=== PATIENT | female | born 1990 | race Caucasian/White ===

== ENCOUNTER → 2018-07-07 | Outpatient (REF) | payer SELFPAY ==
[~2018-07-07] MED LIST: ACET-1718 PO; ACET-3017 PO; CETI-176 PO; CYCL10TA29 PO; DOCU-416 PO; IBUP-2704 PO; IBUP800T37 PO; ONDA4TAB PO; PREN-127 PO; ZOLP-1 PO
[2018-07-07 13:03] LABS: PLATELET COUNT, AUTOMATED 207 K/uL (150-450)
== END ==
LOC: ZZSTITCHES 12:50
PROVIDERS: ATTEND Physician Assistant
DX: R10.11 Right upper quadrant pain (principal); R11.0 Nausea; M25.511 Pain in right shoulder
CPT/HCPCS: 82040; 82247; 82310; 82374; 82435; 82565; 82947; 83690; 84075; 84132; 84155; 84295; 84450; 84460; 84520; 85025

== ENCOUNTER 2018-07-08 22:55 | Inpatient (IN) | payer SELFPAY ==
[~2018-07-08] VITALS: Ht 177.8 cm; Wt 113.9 kg
[~2018-07-08 22:55] MED LIST changes: -CYCL10TA29 PO; -ONDA4TAB PO
--- NOTE | 2018-07-08 23:00 | ER Report ---
History and Physical Time Seen By MD: 23:00 HPI/ROS CHIEF COMPLAINT: Right upper quadrant abdominal pain HISTORY OF PRESENT ILLNESS: 28-year-old female presents ambulatory to the ER complaining of severe right upper quadrant abdominal pain after eating tonight. She notes onset one week ago. Her symptoms of beginning progressively worse. Tonight they're unbearable. She notes 10 out of 10 right upper quadrant pain radiating to her back. She notes is difficult to take a deep breath. Nausea and vomiting. She denies fever or chills. Patient denies dysuria or hematuria. Patient's been seeing a chiropractor because she thought had a rib out. The treatments have not improved her symptoms. REVIEW OF SYSTEMS: Respiratory: No cough, no dyspnea. Cardiovascular: No chest pain, no palpitations. Gastrointestinal: As above Musculoskeletal: No back pain. Allergies: Coded Allergies: Influenza Virus Vacc,Specific (Verified Allergy, Unknown, 07/06/13) Home Meds Active Scripts Ibuprofen (IBUPROFEN) 800 Mg Tablet, 800 MG PO Q8H PRN for PAIN, #30 TAB 0 Refills Prov:CHEYANNE MANRIQUE MD 03/19/17 Reported Medications Ondansetron (ZOFRAN ODT) 4 Mg Tab.rapdis, 4 MG PO Q8H PRN for NAUSEA, TAB.ANGEL 07/08/18 Cyclobenzaprine Hcl (CYCLOBENZAPRINE HCL) 10 Mg Tablet, 10 MG PO TID PRN for PAIN, #9 TAB 07/08/18 Discontinued Reported Medications Cetirizine Hcl (ZYRTEC) 10 Mg Tablet, 10 MG PO QDAY, TAB 03/17/17 Docusate Sodium (COLACE) 100 Mg Capsule, 100 MG PO PRN, CAPSULE 03/17/17 Vits W-Ca,Fe,Fa(<1MG) ( VITAMINS) 1 Each Tablet, 1 EACH PO DAILY, TAB 03/17/17 Discontinued Scripts Acetaminophen With Codeine # 3 (ACETAMINOPHEN-COD #3 TABLET) 1 Each Tablet, 1-2 EACH PO Q4H PRN for PAIN, #14 TAB 0 Refills Prov:CHEYANNE MANRIQUE MD 03/19/17 Reviewed Nurses Notes: Yes Old Medical Records Reviewed: Yes Hx Smoking: Yes (Quit before ) Smoking Status: Former Smoker Exposure to Second Hand Smoke?: No Constitutional Vital Sign - Last 24 Hours 07/08/18 07/08/18 07/08/18 07/08/18 23:02 23:10 23:25 23:40 Temp 97.9 Pulse 102 106 111 89 Resp 20 B/P (MAP) 123/80 Pulse Ox 93 92 93 94 O2 Delivery Room Air 07/08/18 07/09/18 07/09/18 07/09/18 23:55 00:00 00:27 00:30 Pulse 89 B/P (MAP) 104/52 (69) 112/79 (90) 114/69 (84) Pulse Ox 90 07/09/18 07/09/18 07/09/18 07/09/18 00:40 00:55 01:00 01:15 Pulse 91 85 88 87 B/P (MAP) ???/??? (1665) Pulse Ox 90 90 89 07/09/18 07/09/18 07/09/18 07/09/18 01:30 01:45 02:00 02:05 Pulse 77 76 82 79 B/P (MAP) 103/64 (77) 112/61 (78) Pulse Ox 96 93 96 98 07/09/18 07/09/18 07/09/18 07/09/18 02:20 02:30 02:35 02:50 Pulse 79 76 69 B/P (MAP) 99/69 (79) Pulse Ox 94 93 92 07/09/18 07/09/18 07/09/18 07/09/18 03:00 03:05 03:20 03:25 Pulse 72 71 78 B/P (MAP) 93/56 (68) Pulse Ox 90 93 92 Physical Exam General Appearance: The patient is alert, has no immediate need for airway protection and no current signs of toxicity.. Moderate distress, vital signs stable, afebrile HEENT: Pupils equal and round no injection. Oropharynx without redness or exudate, mucous. Membranes are moist Respiratory: Chest is non tender, lungs are clear to auscultation. Cardiac: regular rate and rhythm Gastrointestinal: Abdomen is, soft, very tender right upper quadrant, positive rebound guarding and Leon sign., no masses, bowel sounds normal. Musculoskeletal: Neck: Neck is supple and non tender. No lymphadenopathy Extremities have full range of motion and are non tender. No edema, no calf tenderness Skin: No rashes or lesions. DIFFERENTIAL DIAGNOSIS: After history and physical exam differential diagnosis was considered for abdominal pain including but not limited to appendicitis, cholecystitis, gastritis and urinary tract infection. Additionally,chest pain including but not limited to myocardial ischemia, pericarditis pulmonary embolu s, chest wall pain, pleural inflammation and pulmonary infectious causes. Medical Decision Making Data Points Result Diagram: 07/10/18 0515 07/11/18 0438 Laboratory Hematology Test 07/08/18 23:25 D-Dimer Quantitative (PE/DVT) 3.32 ug/ml (0-0.50) Amylase Level < 30 U/L (0-110) Human Chorionic Gonadotropin, Qual Negative (NEGATIVE) Chemistry Test 07/08/18 23:25 D-Dimer Quantitative (PE/DVT) 3.32 ug/ml (0-0.50) Amylase Level < 30 U/L (0-110) Human Chorionic Gonadotropin, Qual Negative (NEGATIVE) Coagulation Test 07/08/18 23:25 D-Dimer Quantitative (PE/DVT) 3.32 ug/ml EKG/Imaging Imaging Results: CT scan of the CTA pulmonary angiogram was obtained. The results of the study are CTA CHEST WW/O CNTR (PULM ANG) HISTORY: Severe right lower chest pain and right upper quadrant pain. Positive d-dimer. COMPARISON: None. CT abdomen and pelvis was performed concurrently. TECHNIQUE: Pulmonary embolus protocol - Thin-slice axial imaging of the chest was performed during maximal pulmonary arterial opacification with intravenous nonionic iodinated contrast. 3D coronal slab MIPs and 2D reconstructions in the coronal and sagittal planes were performed to aid in pulmonary embolus detection. Machine Wood Sander images have been stored on PACS. One of the following dose optimization techniques was utilized in the performance of this exam: Automated exposure control; adjustment of the mA and/or kV according to the patient's size; or use of an iterative reconstruction technique. Specific details can be referenced in the facility's radiology CT exam operational policy. CONTRAST: 75 mL of IV Isovue-370. FINDINGS: Pulmonary arteries: There is adequate opacification of the pulmonary arteries to the segmental branches. There are no filling defects in the visible pulmonary arteries. Pulmonary arteries are normal in caliber. Thoracic inlet: Normal. Aorta: No aneurysm or dissection. There is no atherosclerosis of the aorta. Heart / Pericardium: The heart is normal. There is no ventricular septal deviation. There is no pericardial effusion. There is no coronary artery calcification. Mediastinum / Zenia: Residual thymic tissue. No lymphadenopathy. Lungs / Pleura: No pleural effusion. The lungs are clear. There is a 2 mm left lower lobe pulmonary nodule (coronal image 47 series 12). There is a calcified granuloma in the right lower lobe (image 59 series 8). No pneumothorax. The airw ays are normal. Upper abdomen: Please see the CT abdomen and pelvis report that is dictated separately. Musculoskeletal/vertebra/body wall: There is mild degenerative change of the spine. No listhesis. No acute fracture. IMPRESSION: 1. No pulmonary embolism. 2. 2 mm left lower lobe pulmonary nodule. Current Fleischner Society recommendations for incidental pulmonary nodules <6mm in size (average of long and short axis): - In a patient with low risk for malignancy (i.e., minimal or absent smoking history, no known malignancy or other risk factors): No routine follow-up. - In a patient at high risk for malignancy (e.g., smoking history and/or other known risk factors): Optional noncontrast CT at 12 months. If unchanged no further follow-up necessary. Nodules less than 6 mm do not require routine follow-up, but certain patients at high risk with suspicious nodule morphology, upper lobe location, or both may warrant 12 month follow-up. Linda H, Nasusan D, Goo J, et al. Guidelines for management of small pulmonary nodules detected on CT images: from the Fleischner society 2017. The study was read by the radiologist. I viewed the images myself on the PACS system. Results: CT scan of the abdomen and pelvis with IV contrast was obtained. The results of the study are ABDOMEN/PELVIS WITH CONTRAST HISTORY: Right lower chest and right upper quadrant abdominal pain. COMPARISON: None. CT pulmonary angiogram was performed concurrently. TECHNIQUE: Axial images were obtained from the lung bases through the symphysis pubis with intravenous contrast. Sagittal and coronal reformats were performed. One of the following dose optimization techniques was utilized in the performance of this exam: Automated exposure control; adjustment of the mA a nd/or kV according to the patient's size; or use of an iterative reconstruction technique. Specific details can be referenced in the facility's radiology CT exam operational policy. CONTRAST: 75 mL IV Isovue-370. FINDINGS: Lower chest: Please see the CT pulmonary angiogram report that is dictated separately. Liver: Normal. Gallbladder/biliary: There are several noncalcified stones within the gallbladder. There is stranding in the fat adjacent to the gallbladder, and there is eccentric gallbladder wall thickening (coronal image 36). No intrahepatic or extrahepatic ductal dilation. Pancreas: Normal. Spleen: Normal. Adrenals: Normal. Kidneys/ureters/bladder: Normal. There is contrast within the renal collecting systems and ureters. GI/mesentery/peritoneal cavity: There is no bowel obstruction. There is no wall thickening or pericolonic stranding. The appendix is normal. There is no free air. Vessels: No aneurysm or significant atherosclerotic disease. No dissection. Nodes: Normal. Pelvis: Uterus and ovaries are normal. Bones/vertebra/soft tissues: There is a small fat-containing umbilical hernia. There is mild degenerative change of the spine. There is straightening of the normal lumbar lordosis. No listhesis. IMPRESSION: 1. Cholelithiasis, and CT findings consistent with cholecystitis. The study was read by the radiologist. I viewed the images myself on the PACS system. Results: Ultrasound of the right upper quadrant gallbladder ultrasound was obtained. The results of the study are GALLBLADDER HISTORY: Acute cholecystitis on CT. COMPARISON: CT abdomen and pelvis earlier same day. FINDINGS: Pancreas: The body and tail the pancreas are not visualized due to bowel gas artifact. Upper abdominal aorta and IVC: Aorta and IVC are patent by color Doppler and are unremarkable. Mid aorta is 2.3 cm in cross-section. Liver: Difficult to penetrate. No discrete lesion. The portal vein is patent with normal hepatopetal flow. Hepatic vein is patent. Gallbladder: There are numerous stones within the gallbladder, as well as gallbladder sludge. There is eccentric thickening of the gallbladder wall. It measures 8 mm in greatest thickness. Gallbladder is prominent in size, measuring 9.6 x 5.4 x 4.9. No pericholecystic fluid. Positive sonographic Leon sign. Common duct: At the upper limits of normal, measuring 6 mm. Right kidney: Normal in size and echogenicity. It measures 10.0 x 4.5 x 6.0 cm. No hydronephrosis. Ascites: None. IMPRESSION: 1. Cholelithiasis with gallbladder wall thickening and pericholecystic fluid, compatible with cholecystitis. 2. Liver is difficult to penetrate. 3. The body and tail of the pancreas are obscured. The study was read by the radiologist. I viewed the images myself on the PACS system. ED Course/Re-evaluation Clinical Indication for ER IV: Hydration, IV Access ED Course Patient was minute to an examination room. H&P was done. The differential diagnosis was considered. Patient on clinical examination is severe right upper quadrant tenderness with Leon sign. She's been having symptoms for 1 week, but became much worse tonight after eating.. Diagnostic evaluation is undertaken. Patient's d-dimer is grossly elevated. A CTA pulmonary angiogram is performed. Patient has normal white blood cell count and LFTs as well as lipase and amylase. A CT scan of the abdomen and pelvis is ordered. It shows acute cholecystitis. Case was discussed with Dr. Mann the on-call general surgeon, who advises admit. She would like a ultrasound done to verify findings. Patient was medicated with IV fluids and required significant pain medicine to get her symptoms under control. 07/09/2018 1:27:42 am case was discussed with Dr. Kylah Mann, general surgery on- call. She except the patient for admission for potential surgery later today. She requests an ultrasound performed as well. Decision to Disposition Date: Jul 09, 2018 Decision to Disposition Time: 01:18 Depart Departure Latest Vital Signs Vital Signs Date Time Temp Pulse Resp B/P (MAP) Pulse Ox O2 Delivery O2 Flow Rate FiO2 07/09/18 03:25 78 92 07/09/18 03:00 93/56 (68) 07/08/18 23:02 97.9 20 Room Air Impression: Primary Impression: Acute cholecystitis Condition: Improved Disposition: HOME OR SELF-CARE SKIP ISAACS DO Jul 08, 2018 23:00
[2018-07-08] MEDS ORDERED: CYCL10TA29 PO (23:07)
[2018-07-08] MEDS ORDERED: ONDA4TAB PO (23:07)
[2018-07-08] MEDS ORDERED: NS(*) 0.9% 1000 ML BAG 1,000 ML IV ONE (23:11)
[2018-07-08] MEDS ORDERED: ONDANSETRON 4 MG/2 ML VIAL IVP ONE (23:15)
[2018-07-08] MEDS ORDERED: fentaNYL CITR 100 MCG/2 ML AMP IVP ONE (23:15)
[2018-07-08 23:32] LABS: PLATELET COUNT, AUTOMATED 183 K/uL (150-450)
[2018-07-09] VITALS (8 sets, daily range): BP systolic 82–118; BP diastolic 49–80; Ht 177.8 cm; Wt 113.9 kg
[2018-07-09] MEDS ORDERED: NS(*) 0.9% 50 ML BAG 50 ML ONE
[2018-07-09] MEDS ORDERED: IOPAMIDOL 76% 75 ML INFUS BTL 75 ML ONE
[2018-07-09] MEDS ORDERED: MORPHINE 4 MG/ML SDV IVP ONE (00:35)
[2018-07-09] MEDS ORDERED: PROMETHAZINE 25 MG/ML 1 ML AMP IVP ONE (00:55)
--- NOTE | 2018-07-09 01:04 | RADIOLOGY IMAGING REPORT ---
[place] [facility] [place]: Marta Bañuelos : 1990 MR: [id number] V: [id number] EXAM DATE: ORDERING PHYSICIAN: SKIP ISAACS TECHNOLOGIST: Location: [facility] [place] Patient: Marta Bañuelos : 1990 Visit/Account:[id number] Date of Sevice: 07/08/2018 CTA CHEST WW/O CNTR (PULM ANG) HISTORY: Severe right lower chest pain and right upper quadrant pain. Positive d-dimer. COMPARISON: None. CT abdomen and pelvis was performed concurrently. TECHNIQUE: Pulmonary embolus protocol - Thin-slice axial imaging of the chest was performed during ma ximal pulmonary arterial opacification with intravenous nonionic iodinated contrast. 3D coronal slab MIPs and 2D reconstructions in the coronal and sagittal planes were performed to aid in pulmonary emb olus detection. Consumer Marketing Manager images have been stored on PACS. One of the following dose optimization techniques was utilized in the performance of this exam: Autom ated exposure control; adjustment of the mA and/or kV according to the patient's size; or use of an i terative reconstruction technique. Specific details can be referenced in the facility's radiology CT exam operational policy. CONTRAST: 75 mL of IV Isovue-370. FINDINGS: Pulmonary arteries: There is adequate opacification of the pulmonary arteries to the segmental branch es. There are no filling defects in the visible pulmonary arteries. Pulmonary arteries are normal in caliber. Thoracic inlet: Normal. Aorta: No aneurysm or dissection. There is no atherosclerosis of the aorta. Heart / Pericardium: The heart is normal. There is no ventricular septal deviation. There is no peric ardial effusion. There is no coronary artery calcification. Mediastinum / Zenia: Residual thymic tissue. No lymphadenopathy. Lungs / Pleura: No pleural effusion. The lungs are clear. There is a 2 mm left lower lobe pulmonary n odule (coronal image 47 series 12). There is a calcified granuloma in the right lower lobe (image 59 series 8). No pneumothorax. The airways are normal. Upper abdomen: Please see the CT abdomen and pelvis report that is dictated separately. Musculoskeletal/vertebra/body wall: There is mild degenerative change of the spine. No listhesis. No acute fracture. IMPRESSION: 1. No pulmonary embolism. 2. 2 mm left lower lobe pulmonary nodule. Current Fleischner Society recommendations for incidental p ulmonary nodules <6mm in size (average of long and short axis): - In a patient with low risk for malignancy (i.e., minimal or absent smoking history, no known malig junito or other risk factors): No routine follow-up. - In a patient at high risk for malignancy (e.g., smoking history and/or other known risk factors): Optional noncontrast CT at 12 months. If unchanged no further follow-up necessary. Nodules less than 6 mm do not require routine follow-up, but certain patients at high risk with suspi cious nodule morphology, upper lobe location, or both may warrant 12 month follow-up. Linda H, Charleen D, Varinder J, et al. Guidelines for management of small pulmonary nodules detected on CT images: from the Fleischner society 2017. Report Dictated By: Nydia Marina at 07/09/2018 12:48 AM Report E-Signed By: Nyida Marina at 07/09/2018 1:00 AM WSN:[id number]
--- NOTE | 2018-07-09 01:13 | RADIOLOGY IMAGING REPORT ---
FACILITY: [facility] PATIENT NAME: Marta Bañuelos : 1990 MR: [id number] V: [id number] EXAM DATE: ORDERING PHYSICIAN: SKIP ISAACS TECHNOLOGIST: Location: [facility] Patient: Marta Bañuelos : 1990 Visit/Account:[id number] Date of Sevice: 07/08/2018 ABDOMEN/PELVIS WITH CONTRAST HISTORY: Right lower chest and right upper quadrant abdominal pain. COMPARISON: None. CT pulmonary angiogram was performed concurrently. TECHNIQUE: Axial images were obtained from the lung bases through the symphysis pubis with intravenou s contrast. Sagittal and coronal reformats were performed. One of the following dose optimization techniques was utilized in the performance of this exam: Autom ated exposure control; adjustment of the mA and/or kV according to the patient's size; or use of an i terative reconstruction technique. Specific details can be referenced in the facility's radiology CT exam operational policy. CONTRAST: 75 mL IV Isovue-370. FINDINGS: Lower chest: Please see the CT pulmonary angiogram report that is dictated separately. Liver: Normal. Gallbladder/biliary: There are several noncalcified stones within the gallbladder. There is stranding in the fat adjacent to the gallbladder, and there is eccentric gallbladder wall thickening (coronal image 36). No intrahepatic or extrahepatic ductal dilation. Pancreas: Normal. Spleen: Normal. Adrenals: Normal. Kidneys/ureters/bladder: Normal. There is contrast within the renal collecting systems and ureters. GI/mesentery/peritoneal cavity: There is no bowel obstruction. There is no wall thickening or pericol onic stranding. The appendix is normal. There is no free air. Vessels: No aneurysm or significant atherosclerotic disease. No dissection. Nodes: Normal. Pelvis: Uterus and ovaries are normal. Bones/vertebra/soft tissues: There is a small fat-containing umbilical hernia. There is mild degenera tive change of the spine. There is straightening of the normal lumbar lordosis. No listhesis. IMPRESSION: 1. Cholelithiasis, and CT findings consistent with cholecystitis. These findings as well as results of the CT pulmonary angiogram examination were discussed by phone w yossi ISAACS on 07/09/2018 1:09 AM. Report Dictated By: Nydia Marina at 07/09/2018 1:00 AM Report E-Signed By: Nydia Marina at 07/09/2018 1:09 AM WSN:[id number]
[2018-07-09] MEDS ORDERED: HYDROMORPHONE HCL 1 MG/ML SYRINGE IVP ONE ×3 (01:15→03:45)
[2018-07-09] MEDS ORDERED: PIPERACILLIN/TAZO*3.375GM VIAL 3.375 GM in NS(*) 0.9% 100 ML ADDVANT BAG 100 ML IVPB ONE (01:25)
--- NOTE | 2018-07-09 02:53 | RADIOLOGY IMAGING REPORT ---
FACILITY: [facility] - [place] PATIENT NAME: Marta Bañuelos : 1990 MR: [id number] V: [id number] EXAM DATE: ORDERING PHYSICIAN: SKIP ISAACS TECHNOLOGIST: Location: [facility] [place] Patient: Marta Bañuelos : 1990 Visit/Account:[id number] Date of Sevice: 07/09/2018 GALLBLADDER HISTORY: Acute cholecystitis on CT. COMPARISON: CT abdomen and pelvis earlier same day. FINDINGS: Pancreas: The body and tail the pancreas are not visualized due to bowel gas artifact. Upper abdominal aorta and IVC: Aorta and IVC are patent by color Doppler and are unremarkable. Mid ao rta is 2.3 cm in cross-section. Liver: Difficult to penetrate. No discrete lesion. The portal vein is patent with normal hepatopetal flow. Hepatic vein is patent. Gallbladder: There are numerous stones within the gallbladder, as well as gallbladder sludge. There i s eccentric thickening of the gallbladder wall. It measures 8 mm in greatest thickness. Gallbladder i s prominent in size, measuring 9.6 x 5.4 x 4.9. No pericholecystic fluid. Positive sonographic Leon sign. Common duct: At the upper limits of normal, measuring 6 mm. Right kidney: Normal in size and echogenicity. It measures 10.0 x 4.5 x 6.0 cm. No hydronephrosis. Ascites: None. IMPRESSION: 1. Cholelithiasis with gallbladder wall thickening and pericholecystic fluid, compatible with cholecy stitis. 2. Liver is difficult to penetrate. 3. The body and tail of the pancreas are obscured. Report Dictated By: Nydia Marina at 07/09/2018 2:43 AM Report E-Signed By: Nydia Marina at 07/09/2018 2:49 AM WSN:[id number]
[2018-07-09] MEDS ORDERED: NORMOSOL R SOLN(*) 1000 ML BAG 0 ML IV ONE (03:36)
[2018-07-09] MEDS ORDERED: LR(*) 1000 ML BAG 1,000 ML IV PRN (04:03)
[2018-07-09] MEDS ORDERED: HYDROMORPHONE HCL 1 MG/ML SYRINGE IVP PRN (04:20)
[2018-07-09] MEDS ORDERED: PROMETHAZINE 25 MG/ML 1 ML AMP IVP PRN (04:25)
[2018-07-09] MEDS ORDERED: ONDANSETRON 4 MG/2 ML VIAL IVP PRN ×2 (04:30→04:35)
[2018-07-09] MEDS: HYDROmorphone* 1 MG/ML 1 MG/ML ML IVP PRN ×4 (05:17→09:54)
[2018-07-09] MEDS ORDERED: PIPERACILLIN/TAZO*3.375GM VIAL 3.375 GM in NS(*) 0.9% 100 ML ADDVANT BAG 100 ML IVPB SCH ×3 (07:00→12:00)
--- NOTE | 2018-07-09 07:38 | Gen Surgery History & Physical ---
History of Present Illness Chief Complaint RUQ abdominal pain History of Present Illness 28 yo female with one week severe, constant RUQ abdominal pain. Pain is exacerbated with movements and eating. + NV and anorexia past week with limited PO intake. She has seen by her chiropractor several times and urgent care this past week without improvement. She had blood work drawn and was told it was normal, those results are not available at this point. No prior biliary symptoms. Denies FCS, dark urine, or acholic stools. History Home Meds Active Scripts Ibuprofen (IBUPROFEN) 800 Mg Tablet, 800 MG PO Q8H PRN for PAIN, #30 TAB 0 Refills Prov:CHEYANNE MANRIQUE MD 03/19/17 Reported Medications Ondansetron (ZOFRAN ODT) 4 Mg Tab.rapdis, 4 MG PO Q8H PRN for NAUSEA, TAB.ANGEL 07/08/18 Cyclobenzaprine Hcl (CYCLOBENZAPRINE HCL) 10 Mg Tablet, 10 MG PO TID PRN for PAIN, #9 TAB 07/08/18 Discontinued Reported Medications Cetirizine Hcl (ZYRTEC) 10 Mg Tablet, 10 MG PO QDAY, TAB 03/17/17 Docusate Sodium (COLACE) 100 Mg Capsule, 100 MG PO PRN, CAPSULE 03/17/17 Vits W-Ca,Fe,Fa(<1MG) ( VITAMINS) 1 Each Tablet, 1 EACH PO DAILY, TAB 03/17/17 Discontinued Scripts Acetaminophen With Codeine # 3 (ACETAMINOPHEN-COD #3 TABLET) 1 Each Tablet, 1-2 EACH PO Q4H PRN for PAIN, #14 TAB 0 Refills Prov:CHEYANNE MANRIQUE MD 03/19/17 Allergies: Coded Allergies: Influenza Virus Vacc,Specific (Verified Allergy, Unknown, 07/06/13) Patient History: FH: hypertension FATHER Review of Systems All Systems Reviewed/Normal: Yes, Except as Noted Gastrointestinal: Nausea, Vomiting, Abdominal Pain, Other (see HPI) Exam General Appearance: Alert, Awake, No Acute Distress, Afebrile Neuro: No Gross deficits Cardiovascular: Normal Rhythm & Peripheral Pulses, Regular Rate and Rhythm Respiratory: No Respiratory Distress, Clear to Auscultation GI: Other (mild distention, obese, exquisite RUQ tenderness with + Leon's sign) Musculoskeletal: No Weakness/Pain Extremities: Warm, Pulses, Perfused Integumentary: Skin Intact without Lesion / Mass, Other (no jaundice) Psych: Alert & Oriented X3, Appropriate Mood & Affect Medical Decision Making Data Points Result Diagram: 07/08/18 23207/08/182324 EKG / Imaging Monitor Interpretation: Normal Sinus Rhythm Assessment and Plan Problems: (1) Cholecystitis Status: Acute Assessment & Plan: 28 yo female with gallbladder hydrops and marked inflammation/thickening consistent with acute cholecystitis. Pt recommended to undergo laparoscopic cholecystectomy with IOC. Proc, risks, benefits, and alternative treatment discussed at length with pt. She understands risks of bleeding, bile leak, duct injury, retained stone, visceral injury, need for secondary intervention, cardiopulm complication. She understands she is at high risk for conversion to the open procedure given significant inflammation. All questions answered and informed consent signed. Cont Zosyn. Time Spent: > 30 min Venous Thromboembolism VTE Risk Physician Assess for VTE Risk: Yes Patient's VTE Risk: High VTE Diagnostic Test 2 Days Prior to Admit: No Antithrombotics Is Pt On Any Antithrombotics?: No Prophylaxis Tx Contraindicated Pharmacological Contraindicati: Surgical Contraindication AUGUSTUS VILLAR MD Jul 09, 2018 07:38
[2018-07-09] MEDS ORDERED: NALOXONE HCL 0.4 MG/ML VIAL IVP PRN (09:05)
[2018-07-09] MEDS ORDERED: ACETAMINOPHEN 325 MG TAB PO PRN (09:05)
[2018-07-09 09:43] LABS: PLATELET COUNT, AUTOMATED 184 K/uL (150-450)
[2018-07-09] MEDS: KCL/D1/2NS 20 MEQ 1000 ML 1,000 ML IV PRN (09:54)
[2018-07-09] MEDS: HYDROmorphone HCL 2 MG/ML SDV IVP PRN ×2 (11:03→12:17)
[2018-07-09] MEDS ORDERED: BUPIVACAIN 0.25% INJ 50ML VIAL ONE (11:16)
[2018-07-09] MEDS ORDERED: IOPAMIDOL 61% 75 ML INFUS BTL 75 ML ONE (11:16)
[2018-07-09] MEDS: PIPERACILLIN/TAZO*3.375GM VIAL 3.375 GM in NS(*) 0.9% 100 ML ADDVANT BAG 100 ML IVPB SCH ×2 (12:17→18:32)
[2018-07-09] MEDS ORDERED: HYDROmorphone PCA 6 MG/30 ML IV PRN (13:05)
[2018-07-09] MEDS ORDERED: FAMOTIDINE(*) 20MG/50ML PREMIX 50 ML IVPB ONE (14:00)
[2018-07-09] MEDS ORDERED: fentaNYL CITR 250 MCG/5 ML AMP ONE (17:04)
[2018-07-09] MEDS ORDERED: LIDOCAINE 2% IV 100 MG/5ML SYR ONE (17:09)
[2018-07-09] MEDS ORDERED: PROPOFOL EMUL(*) 10MG/ML 20 ML 20 ML ONE (17:11)
[2018-07-09] MEDS ORDERED: DEXAMETHASONE SOD 4 MG/ML VIAL ONE (18:27)
[2018-07-09] MEDS ORDERED: ONDANSETRON 4 MG/2 ML VIAL ONE (18:28)
[2018-07-09] MEDS ORDERED: SUGAMMADEX SOD 500 MG/5 ML SDV ONE (18:31)
[2018-07-09] MEDS ORDERED: KETAMINE HCL 200 MG/20 ML MDV ONE ×3 (18:35→20:37)
[2018-07-09] MEDS ORDERED: ACETAMINOPHEN(*)1000 MG/100 ML 100 ML IVPB ONE (20:02)
[2018-07-09] MEDS ORDERED: fentaNYL CITR 100 MCG/2 ML AMP ONE ×4 (20:07→22:08)
[2018-07-09] MEDS ORDERED: ROPIVACAINE 0.2% 20 ML VIAL ONE (21:11)
--- NOTE | 2018-07-09 21:46 | Post Operative Progress Note ---
Post Operative Progress Note Date: Jul 09, 2018 Time: 21:47 Surgeon: Augustus Mann MD [facility] Brake Repairer Hydraulic: Dung Bhardwaj CST Anesthesia: Dr Edi GUAMAN Pre-Op Diagnosis: acute cholecystitis, gallbladder hydrops Post-Op Diagnosis: same, gangrenous cholecystitis Findings: markedly distended, thick walled >9mm with multiple areas of full thickness necrosis Dictation # [id number] Procedure(s): laparoscopic with conversion to open cholecystectomy Specimen Removed:(May be N/A): gallbladder Complications: none Total Tourniquet Time: NA Splint: NA Fluids: 1200 ml Estimated Blood Loss: 200 ml Date OP Note Dictated: Jul 09, 2018 Time OP Note Dictated: 21:49 AUGUSTUS MANN MD Jul 09, 2018 21:46
[2018-07-09] MEDS ORDERED: LR(*) 1000 ML BAG 1,000 ML ONE (22:11)
--- NOTE | 2018-07-09 22:14 | RADIOLOGY IMAGING REPORT ---
FACILITY: [facility] PATIENT NAME: Marta Bañuelos : 1990 MR: [id number] V: [id number] EXAM DATE: ORDERING PHYSICIAN: AUGUSTUS MANN TECHNOLOGIST: Location: [facility] - [place] Patient: Marta Bañuelos : 1990 Visit/Account:[id number] Date of Sevice: 07/09/2018 CHOLANGIOGRAM OPERATIVE Indication: Attempted intraoperative cholangiogram. Open cholecystectomy. Count check. Procedure: Fluoroscopic guidance was provided for Dr. Mann. Fluoroscopy dose: 0.84093 mGym2 dose area product Findings: Reportedly cholangiogram was unable to be performed. Images demonstrate skin jael and palmer rgical clips at the right upper quadrant and skin jael of the left lower abdomen. NG or OG tube is present. No retained surgical sponge, foreign body, or instrument. IMPRESSION: Fluoroscopy was provided. Report Dictated By: Nydia Marina at 07/09/2018 10:08 PM Report E-Signed By: Nydia Marina at 07/09/2018 10:11 PM WSN:[id number]
--- NOTE | 2018-07-09 22:49 | OPERATIVE REPORT 1 ---
EVENT DATE: July 09, 2018 SURGEON: Yesenia Mann MD, [facility] ANESTHESIOLOGIST: Jamar Wesley MD ANESTHESIA: General endotracheal anesthesia. PREOPERATIVE DIAGNOSIS Acute cholecystitis. POSTOPERATIVE DIAGNOSES 1. Acute cholecystitis. 2. Gangrenous cholecystitis. PROCEDURE PERFORMED Laparoscopic with conversion to open cholecystectomy with attempted cholangiogram. This is a wound class 4. INDICATIONS FOR OPERATION This patient is a 28-year-old female presenting with gallbladder hydrops on imaging and marked right upper quadrant pain. She is brought to the operating room at this time for cholecystectomy. FINDINGS AT TIME OF OPERATION The patient had a massively distended gallbladder with dense, thick adhesions surrounding it, including small and large bowel as well as omentum. Laparoscopic dissection was not technically feasible. In addition, there were multiple areas throughout the gallbladder down to the triangle of Calot, including the cystic duct, with full-thickness necrosis. There was a significant amount of bile-stained fluid surrounding the gallbladder upon initial entry into the abdomen. Photo documentation was obtained. DETAILS OF THE OPERATION On July 09, 2018, patient was brought to the operating room and placed in the supine position. Appropriate line and monitors were placed. Patient was induced and intubated under general anesthesia without difficulty. She was then prepped and draped in the usual sterile manner. Pneumoperitoneum was established at the infraumbilical position using standard open technique. The skin, subcutaneous, and fascial tissues were opened using sharp dissection. Two stay sutures of #1 Vicryl were placed. The Malia trocar was inserted. Pneumoperitoneum was established. Under direct vision, three additional trocars were placed, one at the epigastrium and two along the right costal margin. The patient was placed in reverse Trendelenburg position. The dense adhesions to the gallbladder were taken down using careful sharp as well as blunt dissection. Upon exposing the gallbladder, it was noted to be hydropic with areas of necrosis and thick walled, approximately 1 cm thick diffusely. The gallbladder was decompressed with a trocar decompressor, and thick, turbid bile was evacuated. However, the gallbladder still was not amenable to further laparoscopic dissection. At this point in time, the trocars were removed under direct vision. The pneumoperitoneum was evacuated. A right subcostal incision was then made using sharp dissection. Skin, subcutaneous, and fascial, as well as muscle layers were divided using electrocautery. The Omni retractor was placed to facilitate exposure. The adhesions were tediously taken down using a combination of sharp as well as blunt dissection. The gallbladder was removed in a retrograde fashion. The gallbladder, as stated above, had multiple areas of necrosis. This was mobilized down to the triangle of Calot. The critical structures were identified. The cystic artery was clipped immediately adjacent to the gallbladder wall both in the anterior and posterior aspect. The cystic duct was similarly skeletonized. A suture was placed around the duct, and it was opened using sharp dissection along its anterior wall. The cholangiogram catheter was attempted to be inserted, however the lumen was obliterated due to necrosis. Thus, a cholangiogram could not be obtained. The duct at this level was then secured with a silk ligature. The gallbladder was then removed intact and sent for pathological evaluation. At this point, the operative field was irrigated copiously with sterile saline. Hemostasis was intact. The hepatic bed was oozing in a few sites, and thus, a small piece of Surgicel was placed. A 10 mm flat Jack-Lal drain was placed through a separate stab incision and placed along the hepatic fossa. The wound cavity was irrigated copiously. There was no obvious bleeding or bile leak. The anterior abdominal wall was closed in two layers using #1 looped PDS. The wound was irrigated between layers, and the skin edges reapproximated with skin jael. The drain was secured in the anterior abdominal wall with 3-0 silk suture. Patient was then extubated and taken to the recovery room in stable condition. She tolerated the procedure well. Estimated blood loss was 200 mL. Intraoperatively, she received 1200 mL of crystalloid. Urine output not recorded. Final sponge and needle count correct times two. MTDD
[2018-07-09] MEDS: MORPHINE 1 MG/ML 30 ML PCA IV PRN (23:25)
[2018-07-10] VITALS (15 sets, daily range): BP systolic 100–121; BP diastolic 64–80
[2018-07-10] MEDS ORDERED: PIPERACILLIN/TAZO*3.375GM VIAL 3.375 GM in NS(*) 0.9% 100 ML ADDVANT BAG 100 ML IVPB SCH ×2 (01:00→02:00)
[2018-07-10] MEDS: KCL/D1/2NS 20 MEQ 1000 ML 1,000 ML IV PRN ×2 (02:00→13:45)
[2018-07-10 06:41] LABS: PLATELET COUNT, AUTOMATED 174 K/uL (150-450)
[2018-07-10] MEDS: PIPERACILLIN/TAZO*3.375GM VIAL 3.375 GM in NS(*) 0.9% 100 ML ADDVANT BAG 100 ML IVPB SCH ×3 (08:33→20:01)
--- NOTE | 2018-07-10 09:14 | General Surgery Progress Note ---
Subjective Progress Notes Subjective When can I get this tube out of my nose? Physical Exam Vital Signs Date Time Temp Pulse Resp B/P (MAP) Pulse Ox O2 Delivery O2 Flow Rate FiO2 07/10/18 07:18 98.0 84 20 94 Oxy Mask 2.0 Intake and Output 07/10/18 07:00 Intake Total 4094 ml Output Total 680 ml Balance 3414 ml Intake Oral 0 ml IV Total 4094 ml Output Urine Total 350 ml Gastric Drainage Total 100 ml Drainage Total 30 ml Estimated Blood Loss 200 ml # Voids 2 General Appearance: Alert, Awake, Other (NG tube in place as well as oxygen mask) Cardiovascular: Regular Rate and Rhythm (slightly increased heart rate.) Respiratory: Clear to Auscultation GI: Other (right upper quadrant dressing covering open cholecystectomy, EMEKA drain serosanguineous, without bile tinge.) Extremities: Soft and Non Tender, Warm, Other (SCDs in place) Result Diagram: 07/10/18 0515 07/10/18514 Monitor Interpretation: Normal Sinus Rhythm Assessment and Plan Problems: (1) Cholecystitis Status: Acute Assessment & Plan: 28 yo female with gallbladder hydrops and marked inflammation/thickening consistent with acute cholecystitis. Pt recommended to undergo laparoscopic cholecystectomy with IOC. Proc, risks, benefits, and alternative treatment discussed at length with pt. She understands risks of bleeding, bile leak, duct injury, retained stone, visceral injury, need for secondary intervention, cardiopulm complication. She understands she is at high risk for conversion to the open procedure given significant inflammation. All questions answered and informed consent signed. Cont Zosyn. 07/10/18 9am: Patient is feeling much better than preoperatively. Liver function tests (tbili and alk phos normal as is lipase, minimal elevation t ransaminases) look good. Results of operation discussed with patient by Dr. Mann. Plan to remove NG tube but keep NPO except few ice chips for now. Ambulate, IS and monitor. Exam Sepsis Risk: No Definite Risk VIVIANE QUIÑONES MD Jul 10, 2018 09:14
[2018-07-10] MEDS: PANTOPRAZOLE SOD 40 MG IV VIAL IVP SCH (09:41)
[2018-07-10] MEDS: MORPHINE 1 MG/ML 30 ML PCA IV PRN ×2 (10:21→18:48)
[2018-07-10] MEDS ORDERED: KETOROLAC 15 MG/ML VIAL IVP PRN ×2 (17:30→17:45)
[2018-07-10] MEDS ORDERED: NS(*) 0.9% 500 ML BAG 500 ML IV ONE (22:10)
[2018-07-11] MEDS: KCL/D1/2NS 20 MEQ 1000 ML 1,000 ML IV PRN ×2 (01:29→14:04)
[2018-07-11 02:13] VITALS: BP 100/58
[2018-07-11] MEDS: PIPERACILLIN/TAZO*3.375GM VIAL 3.375 GM in NS(*) 0.9% 100 ML ADDVANT BAG 100 ML IVPB SCH ×4 (02:18→20:27)
[2018-07-11 04:43] VITALS: BP 103/69
[2018-07-11 08:08] VITALS: BP 109/68
[2018-07-11] MEDS: MORPHINE 1 MG/ML 30 ML PCA IV PRN ×2 (08:32→18:24)
[2018-07-11] MEDS: PANTOPRAZOLE SOD 40 MG IV VIAL IVP SCH (08:32)
--- NOTE | 2018-07-11 11:01 | General Surgery Progress Note ---
Subjective Progress Notes Subjective "I did better last night but I am very sore/in pain this morning." Patient Complains of: Gastrointestinal: Other (abdominal pain with movement) Physical Exam Vital Signs Date Time Temp Pulse Resp B/P (MAP) Pulse Ox O2 Delivery O2 Flow Rate FiO2 07/11/18 08:37 16 93 07/11/18 08:09 93 07/11/18 08:08 99.5 109/68 (82) Nasal Cannula 3.0 Intake and Output 07/11/18 06:59 Intake Total 1808 ml Output Total 465 ml Balance 1343 ml Intake Oral 0 ml IV Total 1808 ml Output Urine Total 385 ml Gastric Drainage Total 50 ml Drainage Total 30 ml General Appearance: Alert, Awake, Other (Improved appearance since yesterday) Cardiovascular: Regular Rate and Rhythm Respiratory: Clear to Auscultation, Other (decreased bases) GI: Soft and Non-Tender, Other (incisions checked this morning without cellulitis or drainage, EMEKA serous drainage without bile tinge.) Extremities: Soft and Non Tender, Warm, Other (Without edema) Result Diagram: 07/10/18 0515 07/11/18 0438 Monitor Interpretation: Normal Sinus Rhythm Assessment and Plan Problems: (1) Cholecystitis Status: Acute Assessment & Plan: 28 yo female with gallbladder hydrops and marked inflammation/thickening consistent with acute cholecystitis. Pt recommended to undergo laparoscopic cholecystectomy with IOC. Proc, risks, benefits, and alternative treatment discussed at length with pt. She understands risks of bleeding, bile leak, duct injury, retained stone, visceral injury, need for secondary intervention, cardiopulm complication. She understands she is at high risk for conversion to the open procedure given significant inflammation. All questions answered and informed consent signed. Cont Deshaun. 07/10/18 9am: Patient is feeling much better than preoperatively. Liver function tests (tbili and alk phos normal as is lipase, minimal elevation transaminases) look good. Results of operation discussed with patient by Dr. Mann. Plan to remove NG tube but keep NPO except few ice chips for now. Ambulate, IS and monitor. 07/11/2018 11am: Patient is having pain in her surgical incision this morning. Continue to ambulate, be up in chair and work on IS. Discontinue foster catheter and EMEKA drain. Patient may shower. Start sips of clear liquids. If she tolerates, advance to full liquids and decrease intravenous fluids. Laboratory in am. Exam Sepsis Risk: No Definite Risk VIVIANE QUIÑONES MD Jul 11, 2018 11:01
--- NOTE | 2018-07-11 11:06 | General Surgery Progress Note ---
Physical Exam Vital Signs Date Time Temp Pulse Resp B/P (MAP) Pulse Ox O2 Delivery O2 Flow Rate FiO2 07/11/18 08:37 16 93 07/11/18 08:09 93 07/11/18 08:08 99.5 109/68 (82) Nasal Cannula 3.0 Intake and Output 07/11/18 06:59 Intake Total 1808 ml Output Total 465 ml Balance 1343 ml Intake Oral 0 ml IV Total 1808 ml Output Urine Total 385 ml Gastric Drainage Total 50 ml Drainage Total 30 ml Result Diagram: 07/10/18 0515 07/11/18 0438 Monitor Interpretation: Normal Sinus Rhythm Assessment and Plan Problems: (1) Cholecystitis Status: Acute Assessment & Plan: 28 yo female with gallbladder hydrops and marked inflammation/thickening consistent with acute cholecystitis. Pt recommended to undergo laparoscopic cholecystectomy with IOC. Proc, risks, benefits, and alt ernative treatment discussed at length with pt. She understands risks of bleeding, bile leak, duct injury, retained stone, visceral injury, need for secondary intervention, cardiopulm complication. She understands she is at high risk for conversion to the open procedure given significant inflammation. All questions answered and informed consent signed. Cont Zosyn. 07/10/18 9am: Patient is feeling much better than preoperatively. Liver function tests (tbili and alk phos normal as is lipase, minimal elevation transaminases) look good. Results of operation discussed with patient by Dr. Mann. Plan to remove NG tube but keep NPO except few ice chips for now. Ambulate, IS and monitor. See separate note from today Exam Sepsis Risk: No Definite Risk VIVIANE QUIÑONES MD Jul 11, 2018 10:25
[2018-07-11 12:08] VITALS: BP 102/57
[2018-07-11] MEDS: KETOROLAC 15 MG/ML VIAL IVP SCH ×2 (12:11→18:24)
--- NOTE | 2018-07-11 12:41 | Antimicrobial Stewardship ---
Antimicrobial Time Out Antimicrobial Stewardship MD Service: Other (GENERAL SURGERY) Indications: Other (POST OP) Antimicrobial Used ZOSYN 3.375G IV Q6H Start Date: Jul 09, 2018 Culture Results: N/A Eligible for PO Conversion Eligable for PO Conversion: No (NPO - STARTING CLEARS) Reviewed with Provider Reviewed w/ Provider on Rounds: No Comments Comments Patient is afebrile and wbc are not elevated. JANEEN TAPIA Jul 11, 2018 12:41
[2018-07-11 14:54] VITALS: BP 100/63
[2018-07-11 19:19] VITALS: BP 96/59
[2018-07-12 00:09] VITALS: BP 111/58
[2018-07-12] MEDS: KETOROLAC 15 MG/ML VIAL IVP SCH ×2 (00:17→05:52)
[2018-07-12] MEDS: KCL/D1/2NS 20 MEQ 1000 ML 1,000 ML IV PRN ×2 (00:18→09:42)
[2018-07-12] MEDS: PIPERACILLIN/TAZO*3.375GM VIAL 3.375 GM in NS(*) 0.9% 100 ML ADDVANT BAG 100 ML IVPB SCH (02:15)
[2018-07-12 03:09] VITALS: BP 102/59
[2018-07-12 05:53] LABS: PLATELET COUNT, AUTOMATED 166 K/uL (150-450)
[2018-07-12 07:37] VITALS: BP 97/61
--- NOTE | 2018-07-12 08:12 | General Surgery Progress Note ---
Subjective Progress Notes Subjective No complaints this morning. Pain well controlled. 1 flatus last night, 1st since surgery. No BM. Tolerating clear diet. No N/V, no bloating. Physical Exam Vital Signs Date Time Temp Pulse Resp B/P (MAP) Pulse Ox O2 Delivery O2 Flow Rate FiO2 07/12/18 07:37 97.9 80 16 97/61 (73) 96 Oxy Mask 2.5 Intake and Output 07/12/18 07:00 Intake Total 2551 ml Output Total 625 ml Balance 1926 ml Intake Oral 290 ml IV Total 2261 ml Output Urine Total 475 ml Drainage Total 150 ml # Voids 1 General Appearance: Alert, Awake, No Acute Distress, Afebrile GI: Other (Soft, appropriate postop TTP, incisions all look good, no erythema or drainage. EMEKA drain site is dry (removed yesterday).) Extremities: Warm, Perfused Result Diagram: 07/12/1853207/12/18532 Monitor Interpretation: Normal Sinus Rhythm Assessment and Plan Problems: (1) Cholecystitis Status: Acute Assessment & Plan: 28 yo female with gallbladder hydrops and marked inflammat ion/thickening consistent with acute cholecystitis. Pt recommended to undergo laparoscopic cholecystectomy with IOC. Proc, risks, benefits, and alternative treatment discussed at length with pt. She understands risks of bleeding, bile leak, duct injury, retained stone, visceral injury, need for secondary intervention, cardiopulm complication. She understands she is at high risk for conversion to the open procedure given significant inflammation. All questions answered and informed consent signed. Cont Zosyn. 07/10/18 9am: Patient is feeling much better than preoperatively. Liver function tests (tbili and alk phos normal as is lipase, minimal elevation transaminases) look good. Results of operation discussed with patient by Dr. Mann. Plan to remove NG tube but keep NPO except few ice chips for now. Ambulate, IS and monitor. See separate note from today 07/12/18: POD#3 s/p lap converted to open tanmay for gangrenous cholecystitis. Pt doing well this morning. Will advance to full liquid diet for lunch and regular diet for dinner if tolerating diet. Labs all look look good, including LFTs, except for H/H down quite a bit. Clinically, she exhibits no evidence of bleeding. I suspect this is due to either lab error or mobilization of 3rd space fluids resulting in hemodilution. Will recheck in the am. Continue ambulation, IS, pulmonary hygiene, PPI, etc. Will hold off on lovenox due to drop in H/H, stop ketorolac. Condition Stable. Time Spent: < 30 min Exam Sepsis Risk: No Definite Risk JOS EANTONIO LU MD Jul 12, 2018 08:12
[2018-07-12] MEDS: PANTOPRAZOLE SOD 40 MG IV VIAL IVP SCH (08:23)
[2018-07-12 11:30] VITALS: BP 99/61
[2018-07-12 15:01] VITALS: BP 104/73
[2018-07-12] MEDS: MORPHINE 1 MG/ML 30 ML PCA IV PRN (17:15)
[2018-07-12 18:48] VITALS: BP 104/60
[2018-07-13] MEDS: KCL/D1/2NS 20 MEQ 1000 ML 1,000 ML IV PRN (01:32)
[2018-07-13 03:09] VITALS: BP 89/69
[2018-07-13 06:08] LABS: PLATELET COUNT, AUTOMATED 173 K/uL (150-450)
[2018-07-13] MEDS ORDERED: IBUPROFEN 600 MG TAB PO PRN (06:40)
[2018-07-13] MEDS ORDERED: MAGNESIUM HYDROXIDE* 30ML UDCP PO PRN (06:40)
[2018-07-13] MEDS ORDERED: POLYETHYLENE GLYCOL 17 GM PKT PO ONE (06:40)
--- NOTE | 2018-07-13 06:49 | General Surgery Progress Note ---
Subjective Progress Notes Subjective No new complaints this morning. Passing flatus but no BM yet. Having some belching but feels that bloating is improving. Physical Exam Vital Signs Date Time Temp Pulse Resp B/P (MAP) Pulse Ox O2 Delivery O2 Flow Rate FiO2 07/13/18 05:42 16 94 07/13/18 03:09 98.7 62 89/69 (76) Nasal Cannula 2.0 Intake and Output 07/13/18 07:00 Intake Total 2013 ml Output Total 1330 ml Balance 683 ml Intake Oral 2013 ml Output Urine Total 1300 ml Drainage Total 30 ml General Appearance: Alert, Awake, No Acute Distress, Afebrile GI: Other (Soft, appropriate postop TTP, incision in umbilicus and RUQ incision both look good without erythema or drainage.) Extremities: Warm, Perfused Result Diagram: 07/13/1848 07/13/18547 Monitor Interpretation: Normal Sinus Rhythm Assessment and Plan Problems: (1) Cholecystitis Status: Acute Assessment & Plan: 28 yo female with gallbladder hydrops and marked inflammation/thickening consistent with acute cholecystitis. Pt recommended to undergo laparoscopic cholecystectomy with IOC. Proc, risks, benefits, and alternative treatment discussed at length with pt. She understands risks of bleeding, bile leak, duct injury, retained stone, visceral injury, need for secondary intervention, cardiopulm complication. She understands she is at high risk for conversion to the open procedure given significant inflammation. All questions answered and informed consent signed. Cont Deshaun. 07/10/18 9am: Patient is feeling much better than preoperatively. Liver function tests (tbili and alk phos normal as is lipase, minimal elevation transaminases) look good. Results of operation discussed with patient by Dr. Mann. Plan to remove NG tube but keep NPO except few ice chips for now. Ambulate, IS and monitor. See separate note from today 07/12/18: POD#3 s/p lap converted to open tanmay for gangrenous cholecystitis. Pt doing well this morning. Will advance to full liquid diet for lunch and regular diet for dinner if tolerating diet. Labs all look look good, including LFTs, except for H/H down quite a bit. Clinically, she exhibits no evidence of bleeding. I suspect this is due to either lab error or mobilization of 3rd space fluids resulting in hemodilution. Will recheck in the am. Continue ambulation, IS, pulmonary hygiene, PPI, etc. Will hold off on lovenox due to drop in H/H, stop ketorolac. 07/13/18: POD#4. Doing well. Tolerating diet but not eating too much. Has ch ronic constipation so will start bowel regimen today. Will convert IV meds to PO. H/H up this morning; I suspect yesterday's result was spurious. Continue ambulation, IS, pulmonary hygiene, PPI, etc. Will use percocet, ibuprofen, acetaminophen for pain control. If tolerating diet, bowel function better, tolerating PO meds, and vitals/labs OK tomorrow morning then I suspect she'll be able to go home tomorrow. Condition Stable. Time Spent: < 30 min Exam Sepsis Risk: No Definite Risk JOSE ANTONIO LU MD Jul 13, 2018 06:49
[2018-07-13] MEDS: PANTOPRAZOLE SOD 40 MG TABEC PO SCH (08:53)
[2018-07-13] MEDS: DOCUSATE SODIUM 100 MG CAP PO SCH ×2 (08:53→20:45)
[2018-07-13 09:06] VITALS: BP 106/79
[2018-07-13 13:41] VITALS: BP 100/80
[2018-07-13 18:03] VITALS: BP 100/68
[2018-07-13 20:46] VITALS: BP 115/76
[2018-07-13 23:55] VITALS: BP 100/67
[2018-07-14 03:52] VITALS: BP 95/64
[2018-07-14 05:39] LABS: PLATELET COUNT, AUTOMATED 198 K/uL (150-450)
[2018-07-14] MEDS ORDERED: PER PO (06:46)
[2018-07-14] MEDS ORDERED: DOCU-202 PO (06:46)
--- NOTE | 2018-07-14 06:55 | Short(Outpt) Discharge Summary ---
Discharge Summary Reason for Hosp/Final Diag: (1) Cholecystitis Status: Acute Hospital Course & Plan: 28 yo female with gallbladder hydrops and marked inflammation/thickening consistent with acute cholecystitis. Pt recommended to undergo laparoscopic cholecystectomy with IOC. Proc, risks, benefits, and alternative treatment discussed at length with pt. She understands risks of bleeding, bile leak, duct injury, retained stone, visceral injury, need for secondary intervention, cardiopulm complication. She understands she is at high risk for conversion to the open procedure given significant inflammation. All questions answered and informed consent signed. Cont Deshaun. 07/10/18 9am: Patient is feeling much better than preoperatively. Liver function tests (tbili and alk phos normal as is lipase, minimal elevation transaminases) look good. Results of operation discussed with patient by Dr. Mann. Plan to remove NG tube but keep NPO except few ice chips for now. Ambulate, IS and monitor. See separate note from today 07/12/18: POD#3 s/p lap converted to open tanmay for gangrenous cholecystitis. Pt doing well this morning. Will advance to full liquid diet for lunch and regular diet for dinner if tolerating diet. Labs all look look good, including LFTs, except for H/H down quite a bit. Clinically, she exhibits no evidence of bleeding. I suspect this is due to either lab error or mobilization of 3rd space fluids resulting in hemodilution. Will recheck in the am. Continue ambulation, IS, pulmonary hygiene, PPI, etc. Will hold off on lovenox due to dr romero in H/H, stop ketorolac. 07/13/18: POD#4. Doing well. Tolerating diet but not eating too much. Has chronic constipation so will start bowel regimen today. Will convert IV meds to PO. H/H up this morning; I suspect yesterday's result was spurious. Continue ambulation, IS, pulmonary hygiene, PPI, etc. Will use percocet, ibuprofen, acetaminophen for pain control. If tolerating diet, bowel function better, tolerating PO meds, and vitals/labs OK tomorrow morning then I suspect she'll be able to go home tomorrow. 07/14/18: POD#5. Doing well. Tolerating diet, pain well controlled. Will d/c to home this morning. I will see her back in my office next week and I'll remove the jael at that time. Departure Discharge to: Home, Self Care Discharge Instructions Home Meds Active Scripts Oxycodone/Acetaminophen (OXYCODONE/ACETAMINOPHEN 5MG/325 MG) 5 Mg/325 Mg Tab, 1- 2 TAB PO Q4H PRN for PAIN, #30 TAB 0 Refills Prov:JOSE ANTONIO LU MD 07/14/18 Docusate Sodium (DOCUSATE SODIUM) 100 Mg Capsule, 1 CAP PO BID, #30 CAPSULE 0 Refills Prov:JOSE ANTONIO LU MD 07/14/18 Ibuprofen (IBUPROFEN) 800 Mg Tablet, 800 MG PO Q8H PRN for PAIN, #30 TAB 0 Re fills Prov:CHEYANNE MANRIQUE MD 03/19/17 Reported Medications Ondansetron (ZOFRAN ODT) 4 Mg Tab.rapdis, 4 MG PO Q8H PRN for NAUSEA, TAB.ANGEL 07/08/18 Cyclobenzaprine Hcl (CYCLOBENZAPRINE HCL) 10 Mg Tablet, 10 MG PO TID PRN for PAIN, #9 TAB 07/08/18 Discontinued Reported Medications Cetirizine Hcl (ZYRTEC) 10 Mg Tablet, 10 MG PO QDAY, TAB 03/17/17 Docusate Sodium (COLACE) 100 Mg Capsule, 100 MG PO PRN, CAPSULE 03/17/17 Vits W-Ca,Fe,Fa(<1MG) ( VITAMINS) 1 Each Tablet, 1 EACH PO DAILY, TAB 03/17/17 Discontinued Scripts Acetaminophen With Codeine # 3 (ACETAMINOPHEN-COD #3 TABLET) 1 Each Tablet, 1-2 EACH PO Q4H PRN for PAIN, #14 TAB 0 Refills Prov:CHEYANNE MANRIQUE MD 03/19/17 Follow up Referrals: General Surgery - 07/23/18 @ Surgery, General with JOSE ANTONIO LU MD You have a follow up appointment scheduled with Dr. Lu on 07/23/18, at 11:45am. Diet: Regular Activity: No Heavy Lifting Special Instructions: You may shower as desired but don't immerse the incisions for 2 weeks. Avoid any activity that involves straining or lifting more than 10 pounds for 6 weeks after surgery. I am sending you home on oxycodone/acetaminophen for pain control but the [facility] pharmacy won't fill the prescription as it is written as they are now restricting their oxycodone prescriptions to no more than 6 tablets/day so you will want to choose any other pharmacy in town to fill your prescriptions unless you don't think you'll need more than 6 tablets/day. Take the colace twice every day but also machine operator picker miralax at the grocery store and take this every day until you start having bowel movements and then you can stop unless your bowel movements are difficult to pass. If you normally have constipation, you will want to remain on the colace (stool softener) and miralax until you're off the oxycodone and your bowel movements are soft and easy to pass. If you get diarrhea, stop the colace and miralax. JOSE ANTONIO LU MD Jul 14, 2018 06:55
[2018-07-14 07:02] VITALS: BP 111/76
[2018-07-14] MEDS: PANTOPRAZOLE SOD 40 MG TABEC PO SCH (08:31)
[2018-07-14] MEDS: DOCUSATE SODIUM 100 MG CAP PO SCH (08:31)
== END 2018-07-14 11:00 | disposition home or self-care (01) | DRG 415 ==
LOC: ER 23:03 → MED 07-09 03:25
PROVIDERS: ADMIT Surgery; ATTEND Surgery
PROC: 0FJ44ZZ Inspection of Gallbladder, Percutaneous Endoscopic Approach (ICD-10-PCS; 2018-07-09)
PROC: 0FT40ZZ Resection of Gallbladder, Open Approach (ICD-10-PCS; principal; 2018-07-09 18:32)
DX: K81.0 Acute cholecystitis (principal); K82.1 Hydrops of gallbladder; K82.A1 Gangrene of gallbladder in cholecystitis; E66.9 Obesity, unspecified; Z68.36 Body mass index [BMI] 36.0-36.9, adult; Z88.7 Allergy status to serum and vaccine; Z87.891 Personal history of nicotine dependence
CPT/HCPCS: 36415; 71275; 74177; 74300; 76705; 81001; 82040; 82150; 82247; 82248; 82310; 82374; 82435; 82565; 82947; 83690; 84075; 84132; 84155; 84295; 84450; 84460; 84520; 84703; 85007; 85025; 85027; 85379; 86140; 88304; 96361; 96365; 96375; 96376; 99285; C9113; J0131; J1100; J1170; J1885; J2001; J2270; J2405; J2543; J2550; J2704; J2795; J3010; J3480; J3490; J7030; J7040; J7050; J7120; Q9967